=== PATIENT | male | born 1965 | race Caucasian/White ===

== ENCOUNTER 2016-09-27 16:46 | Observation (INO) | payer OTHER ==
[~2016-09-27 16:46] MED LIST: BUPR100T4 PO; FLUO60TA PO; NAPR500T PO
[2016-09-27 19:45] VITALS: BP 120/72; PULSE 71; RESP 18; TEMP 97.8; O2SAT 96
[2016-09-27 23:17] VITALS: PULSE 73
[2016-09-28] VITALS (7 sets, daily range): BP systolic 121–139; BP diastolic 72–82; PULSE 75–89; RESP 16–20; TEMP 97.8–98.8; O2SAT 90–98
[2016-09-28] MEDS ORDERED: buPROPion HCL 100 MG SUSTAINED RELEASE TAB PO SCH ×2 (00:15→09:00)
[2016-09-28] MEDS ORDERED: NAPROXEN 500 MG TAB PO SCH ×2 (00:15→09:00)
[2016-09-28] MEDS ORDERED: TEMAZEPAM 15 MG CAP PO PRN (00:15)
[2016-09-28] MEDS ORDERED: ONDANSETRON HCL 4 MG/2 ML VIAL IV PRN (08:00)
[2016-09-28] MEDS ORDERED: NITROGLYCERIN 0.4 MG SL 25 TABS/BTL SL PRN (08:00)
[2016-09-28] MEDS ORDERED: ACETAMINOPHEN 500 MG CPLT PO PRN (08:00)
[2016-09-28] MEDS ORDERED: SODIUM CHLORIDE 0.9% FLUSH 10 ML FLUSH IV FLUSH PRN (08:00)
[2016-09-28] MEDS ORDERED: ASPIRIN 325 MG TAB PO SCH (09:00)
[2016-09-28] MEDS ORDERED: FLUoxetine HCL 20 MG CAP PO SCH (09:00)
[2016-09-28] MEDS ORDERED: SODIUM CHLORIDE 0.9% FLUSH 10 ML FLUSH IV FLUSH SCH (09:00)
--- NOTE | 2016-09-28 13:29 | HHI.HP ---
HPI Primary Care Physician Non-Staff Chief Complaint Chest pain History of Present Illness 51-year-old male with history of anxiety and depression presents to the emergency room for further onset of chest pain. Onset this morning approximately 11 AM. Location right anterior chest. Characterized as stabbing. Associated symptoms including belching and dry heaves. Denied nausea , vomiting, shortness of breath, or diaphoresis. It did not hurt to take a deep breath. No particular movements or position makes pain better or worse. Has not had similar pain in the past. No known precipitating factors. Relieving factors is GI cocktail provided emergency room. 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 Last meal was at 10:15 AM prior to laying down. (Ligia Nieves) Review of Systems General: No fatigue,weakness, fever, chills, recent illness, or recent travel. Has been in his general state of health. In fact he has recently joined a body Boot [employer] which he attends 3 times weekly. Does not have any exertional chest pain with this workout. HEENT: No BAER, no vision changes, no nasal congestion or drainage, no dysphasia CV: As stated above no current chest pain or pressure. No palpitations, intermittent leg pain, or dizziness RESP: No SOB, cough, wheeze, recent URI, or history of asthma GI: No nausea, vomiting, bowel changes, diarrhea, constipation, pain, distention , melena, or blood in the stool. : No dysuria, urgency, frequency, or history of kidney stones EXT: Occasional bilateral, dependent lower leg edema after being on his feet for long periods. no paraesthesias MS: No discomfort or change in ROM NEURO: No LOC, motor/sensory deficits PSYCH: No current anxiety, depression, or suicidal ideation. Reports situational stress, history of anxiety and depression stable on current medication regimen. SKIN: No rashes, no concerning lesions (Ligia Nieves) Past Family Social History Allergies: Coded Allergies: Amoxicillin (Verified Allergy, Intermediate, hives, 09/27/16) Past Medical History PTSD, anxiety, depression, morbidly obesity Past Surgical History Right hand surgery Reported Medications Active Reported Bupropion HCl 100 Mg Tab 100 Mg PO BID Naproxen 500 Mg Tab 500 Mg PO BID Fluoxetine (Fluoxetine HCl) 60 Mg Tab 60 Mg PO DAILY Active Ordered Medications Current Medications Medications (Trade) Dose Ordered Sig/Arline Route Start Time Stop Time Status Last Admin (Restoril) 15 mg HS PRN PO 09/28/16 00:15 (Naprosyn) 500 mg BID PO 09/28/16 09:00 09/28/16 08:23 (PROzac) 60 mg DAILY PO 09/28/16 09:00 09/28/16 08:23 (Wellbutrin Sr 12 Hr) 100 mg BID PO 09/28/16 09:00 09/28/16 08:23 (NS Flush) 2 ml UNSCH PRN IV FLUSH 09/28/16 08:00 (NS Flush) 2 ml BID IV FLUSH 09/28/16 09:00 (Tylenol) 500 mg Q4H PRN PO 09/28/16 08:00 (Zofran Inj) 4 mg Q6H PRN IV 09/28/16 08:00 (Nitrostat Sl) 0.4 mg Q5M PRN SL 09/28/16 08:00 (Aspirin) 325 mg DAILY PO 09/28/16 09:00 09/28/16 10:10 Family History Brother a cardiac stents at age 47, currently has 12 stents. Endorses brother does not live a healthy lifestyle. Father heart attack in his mid 50s and has 4 cardiac stents. Mother from an aneurysm. Social History No known hypertension, diabetes, or hyperlipidemia. Lifelong nonsmoker. Denies any alcohol or illegal drug use. 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 Recently increase his activity level exercising at a "boot camp. Past cardiac testing 06/2015 exercise stress test completed with Dr. Ry Jean. Test was ordered for cardiac routine workup, denying any symptoms that led to exam. ( Ligia Nieves) Physical Exam Vital Signs Vital Signs Date Time Temp Pulse Resp B/P Pulse Ox O2 Delivery O2 Flow Rate FiO2 09/28/16 12:47 97.8 80 20 139/81 98 09/28/16 12:00 76 09/28/16 09:23 98.0 81 18 121/72 90 09/28/16 08:00 86 09/28/16 03:49 82 09/28/16 03:47 98.5 75 16 138/82 95 7/6/17 00:41 98.8 89 18 129/76 94 09/27/16 23:17 73 09/27/16 19:45 97.8 71 18 120/72 96 Physical Exam GENERAL: Alert WN, WD, NAD, pleasant, morbidly obese, male HEAD: NC, AT EYES: Sclera clear, conjunctiva without injection, pupils equal and round ENT: Mucous membranes pink and moist, no nasal discharge or bleeding NECK: Supple, no masses, trachea midline CV: RRR, without murmur, rub, gallop, no JVD, S1-S2 no S3-S4. No carotid or femoral bruits RESP: Clear lungs throughout bilateral, no crackles, wheeze, rhonchi, symmetrical chest rise, nonlabored, able to speak in full sentences ABD: Soft, NT, ND, no masses, positive bowel tones BACK: No CVAT EXT: Pulses +24, no dependent edema MS: Normal tone 4 extremities, nontender, no obvious deformities, full range of motion NEURO: CN II through CN XII grossly intact, motor strength 5/5, gait WNL PSYCH: A+O 3, pleasant affect, appropriate speech, appropriate mood and affect , insight and judgment SKIN: Normal turgor, normal texture, no lesions, no rashes, brisk cap refill, even hair distribution Laboratory CBC, CMP, and d-dimer unremarkable. Troponins 3 negative. BNP 75. Laboratory completed [facility] (Ligia Nieves) Imaging Chest x-ray interpreted by the radiologist reads- cardiomegaly with presumed mild congestive failure. CTA the aorta interpreted by radiologist reads- negative for aortic dissection. Mild to moderate calcifications in the coronary arteries. There is no p pericardial effusion. Course EKGs 3 EKG showed normal sinus rhythm, normal axis, no ST or T-segment changes ( Ligia Nieves) Assessment and Plan Assessment and Plan Atypical chest painadmitted to chest pain center. Ruled out with 3 sets of EKGs, cardiac enzymes, monitor overnight. Seen and evaluated by Dr. Alpesh Martinez. Chest pain most likely related to an esophageal spasm and not cardiac in nature, however has not had recent stress test therefore will proceed with exercise stress test. If stress test unremarkable, will discharged this evening. Patient is agreeable to plan of care. GERDdiscomfort most likely related to an esophageal spasm, Protonix 40 mg daily prescription will be provided at discharge. Encouraged weight loss and to continue increasing his daily activity. (Ligia Nieves) Discussed Condition With Patient seen and examined with [employer]. patient has atypical CT both by duration and associated symptoms however he does think it may get worse with exertion. His predominant risk is moderate obesity and deconditioning. PE other than obesity is unremarkable and as described. A; Atypical CP RO ACS and GI P: Per protocol If negative then FU OP with PCP (Alpesh Martinez MD) Ligia Nieves Sep 28, 2016 13:29 Alpesh Martinez MD Sep 28, 2016 14:20
[2016-09-28] MEDS ORDERED: PANTOPRAZOLE SOD 40 MG DELAYED RELEASE TAB PO SCH (15:00)
[2016-09-28] MEDS ORDERED: PROT40TA PO (16:36)
--- NOTE | 2016-09-28 16:36 | HHI.DCPOC ---
Discharge Care Plan Diagnosis: (1) Esophageal spasm (2) GERD (gastroesophageal reflux disease) (3) Situational stress Goals to Promote Your Health * To prevent worsening of your condition and complications * To maintain your health at the optimal level Directions to Meet Your Goals Take your medications as prescribed Follow your dietary instruction Follow activity as directed Keep your appointments as scheduled Take your immunizations and boosters as scheduled If your symptoms worsen call your PCP, if no PCP go to Urgent Care Center or Emergency Room Smoking is Dangerous to Your Health. Avoid second hand smoke Call the 24-hour hour crisis hotline for domestic abuse at Ligia NievesP Sep 28, 2016 16:36
--- NOTE | 2016-09-29 13:11 | EKG ---
Date Performed: 09/27/2016 Time Performed: 20:19:00 PTAGE: 51 years EKG: Sinus rhythm NORMAL ECG NO PREVIOUS TRACING DOCTOR: Rikki Sin Interpretating Date/Time 09/29/2016 13:10:16
--- NOTE | 2016-09-29 13:15 | TR ---
Date Performed: 09/28/2016 Time Performed: 15:40:29 DOCTOR: Rikki Sin DRUG LIST: CLINICAL HISTORY: CHEST PAIN REASON FOR TEST: Chest pain REASON FOR ENDING: OBSERVATION: CONCLUSION: Tyshawn protocol completed. Stopped sec to reaching target heart rate and leg fatigue. Maximum JB=313 Target HR Achieved=85.0% Maximum UO=389/86 Total Exercise Time=7:10. No reprod chest pain or discomfort. Occassional PVCs, T wave inversion lead III prior to exam remained unchaged duri ng exam, otherwise st segment changes. Normal bp response. Good exercie tolerance. Recovery quick and unremarkable. COMMENTS: Patient exercised using the Tyshawn protocol. No electrocardiographic changes were seen to suggest ischemia. Hemodynamic response to exercise was normal. No significant arrhythmia was prese nt.
== END 2016-09-28 17:05 | disposition home or self-care (01) ==
LOC: NEDDLT 16:46 → NEPFCDU 19:10
PROVIDERS: ADMIT Internal Medicine Cardiovascular Disease; ATTEND Internal Medicine Cardiovascular Disease
DX: R07.89 Other chest pain (principal); K22.4 Dyskinesia of esophagus; F32.9 Major depressive disorder, single episode, unspecified; F41.9 Anxiety disorder, unspecified; K21.9 Gastro-esophageal reflux disease without esophagitis; E66.01 Morbid (severe) obesity due to excess calories; Z79.899 Other long term (current) drug therapy
CPT/HCPCS: 71010; 71275; 74174; 80048; 82550; 82552; 83735; 83880; 84484; 85025; 85379; 85610; 85730; 93005; 93017; 96374; 96375; 99285; C9113; G0378; J1170; J2405; Q9967; 99281